=== PATIENT | female | born 1995 | race African-American/Black ===

== ENCOUNTER 2016-12-09 07:00 | Emergency (ER) | payer MEDICAID ==
[~2016-12-09] VITALS: Ht 170.2 cm; Wt 50.0 kg
[~2016-12-09 07:00] MED LIST: HYDR.5%T TOPICAL; PRED20 PO
[2016-12-09 07:03] VITALS: BP 107/64; PULSE 92; RESP 16; O2SAT 100
[2016-12-09 07:38] VITALS: TEMP 97.9
[2016-12-09 08:02] LABS: BACTERIA, URINE RARE /hpf; BLOOD, URINE NEG (NEG); GLUCOSE,URINE NEG (NEG); KETONE, URINE NEG (NEG); MUCUS URINE FEW /lpf (OCC); NITRITE,URINE NEG (NEG); SQUAMOUS EPITHELIAL CELL URINE 3 /hpf (0-5); URINE COLOR YELLOW (YELLW/STRAW)
[2016-12-09 08:03] LABS: COMMENT (UR) CULT NOT INDICATED; CULTURE IF INDICATED CULT NOT INDICATED
[2016-12-09] MEDS ORDERED: ACETAMINOPHEN 325 MG TAB PO ONE (08:15)
[2016-12-09] MEDS ORDERED: ONDANSETRON ODT 4 MG TAB PO ONE (08:15)
[2016-12-09] MEDS ORDERED: ZOFR4TAB3 SL (08:40)
--- NOTE | 2016-12-09 08:40 | PD ---
HPI Chief Complaint: GI Complaint Time Seen by Provider: 07:26 Travel History International Travel<30 days: No Contact w/Intl Traveler<30days: No Traveled to known affect area: No History of Present Illness HPI 21 y/o female states she has been having nonbloody emesis and diarrhea with intermittent headaches. She states that her last menstrual cycle was at the beginning of October and she could be . She states her daughter had vomiting last week but that resolved. She denies other sick contacts. She denies other concurrent complaints. She notes multiple episodes. She denies finding factors other than she felt better when she was able to get hydrated some last night. She states all of her symptoms started last night. PFSH Past Medical History Asthma: Yes Diminished Hearing: No Immunizations Current: Yes Thyroid Disease: Yes (hyper) ?: Unknown Social History Alcohol Use: Yes (occasional) Tobacco Use: No Substance Use: Yes (occasional marijuana) Allergies-Medications (Allergen,Severity, Reaction): Coded Allergies: No Known Allergies (Verified , 10/29/16) Reported Meds & Prescriptions Reported Meds & Active Scripts Active Zofran Odt (Ondansetron Odt) 4 Mg Tab 4 Mg SL Q6HR PRN Hydrocortisone Topical (Hydrocortisone) 0.5% Oint 1 Applic TOPICAL QID PRN 14 Days Prednisone 20 Mg Tab 20 Mg PO BID Review of Systems Except as stated in HPI: all other systems reviewed are Neg Physical Exam Narrative General: No apparent distress, well appearing ENT: Posterior oropharyngx clear without exudate or erythema, external auditory canals are normal. Bilateral TM clear Neck: Neck is supple, no meningeal signs, trachea is midline Cardiovascular: Regular rate and rhythm Lungs: No increased respiratory effort noted, CTA bilaterally Abdomen: Soft, NT, ND, no rebound or guarding Back: No step-offs, midline spine nontender, no CVA tenderness Extremities: No edema Neuro: Awake, motor and sensation grossly intact, normal speech Data Data Last Documented VS Vital Signs Date Time Temp Pulse Resp B/P Pulse Ox O2 Delivery O2 Flow Rate FiO2 12/09/16 07:38 97.9 12/09/16 07:03 92 16 107/64 100 Room Air Orders Ed Urine Pregnancytest Poc (12/09/16 07:28) Urinalysis - C+S If Indicated (12/09/16 07:28) Ondansetron Odt (Zofran Odt) (12/09/16 08:15) Acetaminophen (Tylenol) (12/09/16 08:15) Oral Rehydration (12/09/16 09:09) Labs Laboratory Tests Test 12/09/16 07:50 Urine Color YELLOW Urine Turbidity CLEAR Urine pH 8.0 Urine Specific [place] 1.028 Urine Protein 30 mg/dL Urine Glucose (UA) NEG mg/dL Urine Ketones NEG mg/dL Urine Occult Blood NEG Urine Nitrite NEG Urine Bilirubin NEG Urine Urobilinogen LESS THAN 2.0 MG/DL Urine Leukocyte Esterase NEG Urine RBC 1 /hpf Urine WBC 1 /hpf Urine Squamous Epithelial 3 /hpf Cells Urine Bacteria RARE /hpf Urine Mucus FEW /lpf Microscopic Urinalysis Comment CULT NOT INDICATED MDM Medical Decision Making Medical Screen Exam Complete: Yes Emergency Medical Condition: Yes Medical Record Reviewed: Yes (pmh confirmed) Interpretation(s) Beta is negative and urine without signs of infection or significant ketones Differential Diagnosis Gastroenteritis, URI, , dehydration.... Narrative Course Will check urinalysis and test and reevaluate UA without signs of infection or significant ketones, no emesis here, test is negative. Patient updated and will dose with Zofran and Tylenol and make sure tolerates oral hydration Patient denies any new complaints and states that they are feeling better. Patient happy with care, all questions answered. Patient knows that follow up is incumbent on them and to return to the emergency room immediately if new or worsening symptoms develop. Patient given strict return precautions, vitals reviewed and are normal, agrees to further workup as an outpatient. Diagnosis Primary Impression: Vomiting and diarrhea Additional Impression: Headache Qualified Code: R51 - Nonintractable headache, unspecified chronicity pattern , unspecified headache type Patient Instructions: General Instructions Med/Other Pt SpecificInfo: Prescription(s) given Scripts Ondansetron Odt (Zofran Odt)4 Mg Tab4 Mg SL Q6HR PRN (Nausea/Vomiting) #10 TAB Prov:Ana Laura Zheng MD 12/09/16 Disposition: 01 DISCHARGE HOME Condition: Stable Ana Laura Zheng MD Dec 09, 2016 08:40
[2016-12-09 10:15] VITALS: BP 127/74
[2017-03-23] MEDS ORDERED: DEPO150I IM (14:00)
[2017-04-06] MEDS ORDERED: AZIT500T2 PO (09:38)
== END 2016-12-09 10:20 | disposition home or self-care (01) ==
LOC: NEPE 07:00
DX: R11.10 Vomiting, unspecified (principal); R51 Headache; R19.7 Diarrhea, unspecified; J45.909 Unspecified asthma, uncomplicated; F12.90 Cannabis use, unspecified, uncomplicated
CPT/HCPCS: 81001; 84703; 99284